=== PATIENT | female | born 1960 | race Hispanic/Latino ===

== ENCOUNTER → 2017-05-18 | Emergency (ER) | payer SELFPAY ==
[~2017-05-18] VITALS: Ht 162.6 cm; Wt 99.8 kg
--- NOTE | 2017-05-18 13:01 | Diagnostic Imaging Report ---
EXAMINATION: Head and cervical spine CT without contrast. HISTORY: Status post fall, trauma, head injury, pain COMPARISON: None. TECHNIQUE: Multidetector axial images were obtained without contrast from the foramen magnum to the vertex and through the cervical spine. The images were reconstructed using brain and bone algorithms. Thin section brain images were reformatted into coronal and sagittal planes. HEAD CT FINDINGS: Skull: No lytic or blastic lesions. No fractures. Parenchyma: Normal. No mass, hemorrhage or CT evidence of acute vascular insult. Brain volume: Normal for age. Ventricles: No hydrocephalus or displacement. Arteries: No density suggestive of thrombus. Dural sinuses: No abnormal density. Extra-axial spaces: No abnormal density. Foramen magnum: No mass, Chiari malformation, or basilar invagination. Sella: No obvious mass. Paranasal/mastoid sinuses: Imaged portions unremarkable. CERVICAL SPINE CT FINDINGS: Alignment:Normal alignment and lordosis. Soft tissues: Normal. Vertebrae: Normal height and density. No acute fracture, infection or neoplasm. Intervertebral disk degenerative changes: None IMPRESSION: Head CT: No intracranial abnormalities. Particularly no hemorrhage. Cervical spine CT: No acute cervical spine fractures or dislocations Note: Acute postraumatic spinal cord, vascular or ligamentous injuries cannot be excluded on the basis of the current examination. Signed by: Dr. Yumiko Oro M.D. on 05/18/2017 12:58 PM
--- NOTE | 2017-05-18 13:26 | Diagnostic Imaging Report ---
PROCEDURE:X-RAY RIGHT ANKLE, COMPLETE TECHNIQUE:AP, lateral and oblique views right ankle INDICATION:Falls; syncope COMPARISON:None. FINDINGS: Right ankle image regional skeleton are intact and in anatomic alignment. 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 CONCLUSION: No evidence of fracture or acute traumatic malalignment. Dictated by: Daniel Hurtado M.D. on 05/18/2017 at 13:34 Electronically approved by: Daniel Hurtado M.D. on 05/18/2017 at 13:34
--- NOTE | 2017-05-18 13:27 | Diagnostic Imaging Report ---
PROCEDURE:KNEE RIGHT THREE VIEWS TECHNIQUE:AP, lateral and oblique views right knee INDICATION:Fall; passed out COMPARISON:None. FINDINGS: The right knee is intact and in anatomic alignment. Joint spaces preserved. No effusion. Mild regional atherosclerosis. CONCLUSION: No acute abnormality. Dictated by: Daniel Hurtado M.D. on 05/18/2017 at 13:35 Electronically approved by: Daniel Hurtado M.D. on 05/18/2017 at 13:35
== END | disposition home or self-care (01) ==
LOC: ER 11:16
DX: S00.83XA Contusion of other part of head, initial encounter (principal); M54.2 Cervicalgia; S16.1XXA Strain of muscle, fascia and tendon at neck level, initial encounter; S80.01XA Contusion of right knee, initial encounter; W18.30XA Fall on same level, unspecified, initial encounter; Y93.01 Activity, walking, marching and hiking; Y92.238 Other place in hospital as the place of occurrence of the external cause
CPT/HCPCS: 70450; 72125; 99282

== ENCOUNTER 2020-10-31 14:21 | Emergency (ER) | payer OTHER ==
[~2020-10-31] VITALS: Ht 162.6 cm; Wt 99.8 kg
[2020-10-31] MEDS ORDERED: HYDROCODONE/APAP 7.5MG-325MG 1 EA TAB PO NR (15:30)
== END 2020-10-31 17:28 | disposition home or self-care (01) ==
LOC: ER 14:49
DX: M54.31 Sciatica, right side (principal); M25.551 Pain in right hip; W01.0XXA Fall on same level from slipping, tripping and stumbling without subsequent striking against object, initial encounter; Y93.41 Activity, dancing; Z95.5 Presence of coronary angioplasty implant and graft
CPT/HCPCS: 70450; 72125; 72131; 99283